=== PATIENT | female | born 1950 | race Caucasian/White ===

== ENCOUNTER 2020-08-10 13:59 | Outpatient (CLI) | payer OTHER | END 2020-08-10 23:59 | disposition home or self-care (01) | LOC: CFH 13:59 | PROVIDERS: ATTEND Nurse Practitioner | DX: Z12.31 Encounter for screening mammogram for malignant neoplasm of breast (principal); Z12.39 Encounter for other screening for malignant neoplasm of breast; E04.1 Nontoxic single thyroid nodule | CPT/HCPCS: 76536; 76641; 77063; 77067 ==